=== PATIENT | female | born 1955 | race Caucasian/White ===

== ENCOUNTER → 2016-11-15 | Day surgery (SDC) | payer MEDICARE, MEDICAID ==
[~2016-11-15] MED LIST: CHONDR SU A NA/HYALUR INTRAOC KIT (SURGICARE) ONE; EPINEPHRINE INJ/PF 1 MG/1 ML AMPULE ONE; FENTANYL CITRATE INJ/PF 100 MCG/2 ML AMPUL ONE; KETOROLAC TROMETHAMINE 0.45% 4 DROP/0.4 ML DROPERETTE OS PRN; LIDOCAINE 1% INJ-PF (10 MG/ML) 30 ML SDV ONE; MIDAZOLAM 2 MG/2 ML INJ ONE; ONDANSETRON HCL INJ/PF 4 MG/2 ML SDV ONE
[2016-11-15] MEDS: TETRACAINE HCL 0.5% OPH SOLN 2 ML OS PRN ×3 (09:58→10:40)
[2016-11-15] MEDS: CYCLOPENTOLATE 0.2%/PHENYLEPHRINE 1% OPH SOLN 2 ML OS PRN ×3 (09:59→10:25)
[2016-11-15] MEDS: BESIFLOXACIN HCL 0.6% OPH SUSP 5 ML BOTTLE OS PRN ×3 (09:59→11:03)
[2016-11-15] MEDS: TROPICAMIDE 1% OPH SOLN 3 ML OS PRN ×3 (09:59→10:25)
--- NOTE | 2016-11-15 19:17 | [facility] OPERATIVE REPORT E ---
[facility] Operative Report NAME: ZHENG SALAS AGE: 61Y DATE OF SURGERY: ROOM: PREOPERATIVE DIAGNOSIS: CATARACT, LEFT EYE. POSTOPERATIVE DIAGNOSIS: CATARACT, LEFT EYE. OPERATION: Cataract extraction with intraocular lens implant of the left eye. SURGEON: DELIA ELLIS M.D. ANESTHESIA: Topical. PROCEDURE: After obtaining appropriate consent, the patient's left eye was prepped and draped in sterile fashion as well as the surgeon in a sterile manner and cataract surgery was started. First a paracentesis blade was used to make a small side-port incision. Viscoelastic was used to inflate the anterior chamber. Next a 2.4 mm incision was made with the paracentesis blade. A continuous capsulorrhexis incision was made using a cystotome and Utrata forceps. Following this hydrodissection was carried out to make the lens fully loose and mobile and it was rotated 90 degrees. Following this, a bkrpwh-kda-oxniaac technique was used to phacoemulsify the lens with a CDE of 8.28. The remaining cortex was removed with irrigation/aspiration. Provisc was instilled into the capsular bag to inflate the bag. A SN60WF, 21.0 diopter lens was placed. The remaining viscoelastic material was removed with irrigation/aspiration. Following this, a 10-0 nylon suture was used to close the incision and it was found to be watertight. Vigamox was instilled in the eye and a protective shield was placed over the eye. The patient returned to the postoperative recovery in stable condition. DICTATING PHYSICIAN: DELIA ELLIS M.D. [id number] PHY#: [id number] ID: [id number] JOB#: [id number] ACCT: [id number] cc:DELIA ELLIS M.D. >
--- NOTE | 2016-11-15 19:22 | [facility] DISCHARGE SUMMARY E ---
[facility] Discharge Summary NAME: ZHENG SALAS AGE: 61Y ADMITTED: 11/15/2016 DISCHARGED: REASON FOR ADMISSION: This is a 61-year-old female who underwent cataract extraction of the left eye. FINAL DIAGNOSIS: Cataract, left eye. HISTORY AND HOSPITAL COURSE: She underwent surgery because she was having difficulty seeing road signs and faces as well as watching TV. She should be on a regular diet. No bending at the waist. No heavy lifting. She should use her Besivance, Ilevro and Durezol at 3 p.m. and 8 p.m. and sleep with a rigid shield, and I will see her for a 1-day postoperative tomorrow. DICTATING PHYSICIAN: DELIA ELLIS M.D. [id number] PHY#: [id number] ID: [id number] JOB#: [id number] ACCT: [id number] cc:DELIA ELLIS M.D. >
== END ==
LOC: SC 09:29
PROVIDERS: ATTEND Internal Medicine
PROC: 08RK3JZ Replacement of Left Lens with Synthetic Substitute, Percutaneous Approach (ICD-10-PCS; principal; 2016-11-15 11:00)
DX: H25.13 Age-related nuclear cataract, bilateral (principal); H52.03 Hypermetropia, bilateral; I10 Essential (primary) hypertension; J44.9 Chronic obstructive pulmonary disease, unspecified; M19.90 Unspecified osteoarthritis, unspecified site; F17.210 Nicotine dependence, cigarettes, uncomplicated; K21.9 Gastro-esophageal reflux disease without esophagitis; E66.9 Obesity, unspecified; Z88.5 Allergy status to narcotic agent; Z79.51 Long term (current) use of inhaled steroids; Z79.82 Long term (current) use of aspirin; Z68.43 Body mass index [BMI] 50.0-59.9, adult; Z99.81 Dependence on supplemental oxygen
CPT/HCPCS: 66984; V2632; J2250; J3490 ×2; A9270; J0171; J3010; J2405; 142